=== PATIENT | female | born 1995 | race Caucasian/White ===

== ENCOUNTER 2016-10-25 15:40 | Outpatient (CLI) | payer OTHER ==
[~2016-10-25] VITALS: Ht 167.6 cm; Wt 61.4 kg
[~2016-10-25 15:40] MED LIST: ABILIFY5 MG PO; ANSAID100 MG PO; DESYREL100 MG PO; ZOLOFT100 MG PO
[2016-10-25 15:54] VITALS: BP 122/62
[2016-10-25] MEDS ORDERED: EXPECTA PRENAT1 EACH PO (16:09)
[2016-10-25 16:44] LABS: BASOPHIL COUNT 0.1 K/uL (0-0.1); EOSINOPHIL (%) 3.9 % (0-5); EOSINOPHIL COUNT 0.4 K/uL (0-0.3); HEMATOCRIT 37.5 % (36.0-46.0); IMMATURE GRANULOCYTE (%) 0.6 % (0.0-0.7); IMMATURE GRANULOCYTE COUNT 0.1 K/uL; INSTRUMENT ABS NEUTROPHIL CT 6.5 K/uL; LYMPHOCYTE COUNT 1.9 K/uL (1.0-2.8); MCH 32.8 PG (29.0-34.0); MCV 91.2 FL (83-99); MEAN PLAT.VOLUME 10.8 uM^3 (9.5-12.4); MONOCYTE (%) 6.6 % (3-12); MONOCYTE COUNT 0.6 K/uL (0-0.8); NEUTROPHIL (%) 68.1 % (45-76); NEUTROPHIL COUNT 6.5 K/uL (1.8-6.4); PLATELET COUNT 181 K/uL (156-360); RBC DIS.WIDTH-CV 13.2 % (11.8-14.6); RBC DIS.WIDTH-SD 43.7 % (39-53); RED BLOOD COUNT 4.11 M/uL (3.80-5.20); WHITE BLOOD COUNT 9.5 K/uL (4.1-10.2)
[2016-10-25 18:03] VITALS: BP 109/61
[2016-10-25 18:35] LABS: ADD MIUA? NO; BILIRUBIN NEGATIVE; BLOOD NEGATIVE; COLOR YELLOW ((YELLOW)); GLUCOSE (STRIP) NEGATIVE; KETONES 20; LEUKOCYTES NEGATIVE; NITRITE NEGATIVE; PROTEIN (STRIP) NEGATIVE; SPECIFIC GRAVITY 1.019 (1.000-1.030); UROBILINOGEN 0.2 MG/DL (0.2-1.0)
[2016-10-25 19:12] VITALS: BP 101/59
[2016-10-25 19:37] LABS: THC CANNABINOIDS NEGATIVE (50 ng/mL)
[2016-10-25 19:38] LABS: AMPHETAMINE NEGATIVE (500 ng/mL); BARBITURATES NEGATIVE (200 ng/mL); BENZODIAZEPINES NEGATIVE (150 ng/mL); COCAINE NEGATIVE (150 ng/mL); INTERNAL CONTROLS VALID? YES; METHADONE NEGATIVE (200 ng/mL); METHAMPHETAMINE NEGATIVE (500 ng/mL); OPIATES (MORPHINE) NEGATIVE (100 ng/mL); OXYCODONE NEGATIVE (100 ng/mL); PHENCYCLIDINE NEGATIVE (25 ng/mL); PROPOXYPHENE NEGATIVE (300 ng/mL); TRICYCLIC ANTIDEPRESSANTS NEGATIVE (300 ng/mL)
[2016-10-25 20:14] LABS: CANDIDA DNA PROBE NEGATIVE; GARDNERELLA DNA PROBE NEGATIVE; INTERNAL CONTROL VALID? YES
[2016-10-28 13:22] LABS: CHLAMYDIA TRACHOMATIS NEGATIVE; NEISSERIA GONORRHOEAE NEGATIVE
== END 2016-10-25 20:50 | disposition home or self-care (01) ==
LOC: LDRP-OP 15:40 → 2WEST 15:44
PROVIDERS: Advanced Practice Midwife; Obstetrics & Gynecology
DX: O60.02 Preterm labor without delivery, second trimester (principal); Z3A.20 20 weeks gestation of pregnancy; Z88.0 Allergy status to penicillin
CPT/HCPCS: 59025; 81003; 85025; 87086; 87480; 87491; 87510; 87591; 87660; G0378

== ENCOUNTER → 2016-12-05 | Outpatient (CLI) | payer OTHER ==
[~2016-12-05] VITALS: Ht 167.6 cm; Wt 65.0 kg
[~2016-12-05] MED LIST changes: +EXPECTA PRENAT1 EACH PO
[2016-12-05 17:05] VITALS: BP 110/62
== END | disposition home or self-care (01) ==
LOC: IVINF 16:58
DX: Z31.82 Encounter for Rh incompatibility status (principal); O46.92 Antepartum hemorrhage, unspecified, second trimester
CPT/HCPCS: 96372

== ENCOUNTER 2017-01-01 20:23 | Outpatient (CLI) | payer OTHER ==
[~2017-01-01] VITALS: Ht 167.6 cm; Wt 68.0 kg
[2017-01-01 20:42] VITALS: BP 122/69
[2017-01-01 23:37] LABS: ADD MIUA? NO; BILIRUBIN NEGATIVE; BLOOD NEGATIVE; COLOR STRAW ((YELLOW)); GLUCOSE (STRIP) NEGATIVE; KETONES NEGATIVE; LEUKOCYTES NEGATIVE; NITRITE NEGATIVE; PROTEIN (STRIP) NEGATIVE; UCUL ADDED? NO; UROBILINOGEN 0.2 MG/DL (0.2-1.0)
[2017-01-01 23:45] VITALS: BP 115/66
[2017-01-02 02:42] VITALS: BP 110/60
[2017-01-02 04:20] LABS: CANDIDA DNA PROBE NEGATIVE; GARDNERELLA DNA PROBE NEGATIVE; INTERNAL CONTROL VALID? YES
[2017-01-02 07:55] VITALS: BP 102/50
[2017-01-02] MEDS ORDERED: TERAZOL 745 GM VG (19:14)
[2017-01-03 13:36] LABS: CHLAMYDIA TRACHOMATIS NEGATIVE; NEISSERIA GONORRHOEAE NEGATIVE
== END 2017-01-02 08:15 | disposition home or self-care (01) ==
LOC: LDRP-OP → 2WEST 20:24 → LDRP-OP 04-12 21:12
PROVIDERS: Advanced Practice Midwife; Obstetrics & Gynecology
DX: O60.03 Preterm labor without delivery, third trimester (principal); Z3A.30 30 weeks gestation of pregnancy
CPT/HCPCS: 59025; 81003; 87081; 87480; 87491; 87510; 87591; 87660; G0378; J7120

== ENCOUNTER 2017-01-02 18:07 | Outpatient (CLI) | payer OTHER ==
[2017-01-02 18:23] VITALS: BP 113/62
[2017-01-02] MEDS ORDERED: TERAZOL 745 GM VG (19:14)
== END 2017-01-02 19:05 | disposition home or self-care (01) ==
LOC: LDRP-OP 18:07 → 2WEST 18:08
DX: O60.03 Preterm labor without delivery, third trimester (principal); Z3A.30 30 weeks gestation of pregnancy
CPT/HCPCS: 59025; G0378

== ENCOUNTER 2017-01-16 17:20 | Outpatient (CLI) | payer OTHER ==
[~2017-01-16 17:20] MED LIST changes: +TERAZOL 745 GM VG
[2017-01-16 17:33] VITALS: BP 119/69
[2017-01-16 18:38] LABS: AMPHETAMINE NEGATIVE (500 ng/mL); BARBITURATES NEGATIVE (200 ng/mL); BENZODIAZEPINES NEGATIVE (150 ng/mL); COCAINE NEGATIVE (150 ng/mL); INTERNAL CONTROLS VALID? YES; METHADONE NEGATIVE (200 ng/mL); METHAMPHETAMINE NEGATIVE (500 ng/mL); OPIATES (MORPHINE) NEGATIVE (100 ng/mL); OXYCODONE NEGATIVE (100 ng/mL); PHENCYCLIDINE NEGATIVE (25 ng/mL); PROPOXYPHENE NEGATIVE (300 ng/mL); THC CANNABINOIDS NEGATIVE (50 ng/mL); TRICYCLIC ANTIDEPRESSANTS NEGATIVE (300 ng/mL)
[2017-01-16 19:13] VITALS: BP 118/72
[2017-01-16 20:02] LABS: ADD MIUA? YES; BILIRUBIN NEGATIVE; BLOOD SMALL; COLOR YELLOW ((YELLOW)); GLUCOSE (STRIP) NEGATIVE; KETONES NEGATIVE; LEUKOCYTES MODERATE; NITRITE NEGATIVE; PROTEIN (STRIP) NEGATIVE; SPECIFIC GRAVITY 1.009 (1.000-1.030); UROBILINOGEN 0.2 MG/DL (0.2-1.0)
[2017-01-16 20:04] LABS: BACTERIA 2+ /HPF; EPITHELIAL CELLS 1+ /HPF; RED BLOOD CELLS 0-5 /HPF (0-5); UCUL ADDED? YES; WHITE BLOOD CELLS 0-5 /HPF (0-5)
[2017-01-16 20:05] LABS: MUCUS TRACE /LPF
[2017-01-16 23:01] LABS: CANDIDA DNA PROBE NEGATIVE; GARDNERELLA DNA PROBE NEGATIVE; INTERNAL CONTROL VALID? YES
== END 2017-01-16 20:25 | disposition home or self-care (01) ==
LOC: LDRP-OP 17:20 → 2WEST 17:21 → LDRP-OP 04-12 20:44
PROVIDERS: Advanced Practice Midwife; Obstetrics & Gynecology Obstetrics
DX: O47.03 False labor before 37 completed weeks of gestation, third trimester (principal); Z3A.32 32 weeks gestation of pregnancy
CPT/HCPCS: 59025; 81003; 82731; 87086; 87480; 87510; 87660; G0378; J7120

== ENCOUNTER 2017-02-28 16:56 | Inpatient (IN) | payer OTHER ==
[~2017-02-28] VITALS: Ht 167.6 cm; Wt 72.7 kg
[2017-02-28] VITALS (12 sets, daily range): BP systolic 99–129; BP diastolic 54–76
[2017-02-28 19:22] LABS: EOSINOPHIL (%) 1.9 % (0-5); EOSINOPHIL COUNT 0.2 K/uL (0-0.3); HEMATOCRIT 38.3 % (36.0-46.0); IMMATURE GRANULOCYTE (%) 1.1 % (0.0-0.7); IMMATURE GRANULOCYTE COUNT 0.1 K/uL; INSTRUMENT ABS NEUTROPHIL CT 6.6 K/uL; LYMPHOCYTE COUNT 1.9 K/uL (1.0-2.8); MCH 31.6 PG (29.0-34.0); MCHC 34.5 G/DL (30.0-36.0); MCV 91.6 FL (83-99); MEAN PLAT.VOLUME 12.6 uM^3 (9.5-12.4); MONOCYTE (%) 7.9 % (3-12); MONOCYTE COUNT 0.8 K/uL (0-0.8); NEUTROPHIL (%) 69.3 % (45-76); NEUTROPHIL COUNT 6.6 K/uL (1.8-6.4); PLATELET COUNT 144 K/uL (156-360); RBC DIS.WIDTH-CV 14.6 % (11.8-14.6); RBC DIS.WIDTH-SD 49.3 % (39-53); RED BLOOD COUNT 4.18 M/uL (3.80-5.20); WHITE BLOOD COUNT 9.5 K/uL (4.1-10.2)
[2017-03-01] VITALS (10 sets, daily range): BP systolic 101–158; BP diastolic 59–82
[2017-03-02 07:04] LABS: EOSINOPHIL (%) 2.9 % (0-5); EOSINOPHIL COUNT 0.3 K/uL (0-0.3); HEMATOCRIT 32.1 % (36.0-46.0); IMMATURE GRANULOCYTE (%) 1.5 % (0.0-0.7); IMMATURE GRANULOCYTE COUNT 0.1 K/uL; INSTRUMENT ABS NEUTROPHIL CT 4.9 K/uL; LYMPHOCYTE COUNT 2.5 K/uL (1.0-2.8); MCH 32.2 PG (29.0-34.0); MCHC 34.3 G/DL (30.0-36.0); MCV 93.9 FL (83-99); MEAN PLAT.VOLUME 12.4 uM^3 (9.5-12.4); MONOCYTE (%) 8.2 % (3-12); MONOCYTE COUNT 0.7 K/uL (0-0.8); NEUTROPHIL (%) 57.2 % (45-76); NEUTROPHIL COUNT 4.9 K/uL (1.8-6.4); PLATELET COUNT 131 K/uL (156-360); RBC DIS.WIDTH-CV 14.8 % (11.8-14.6); RBC DIS.WIDTH-SD 50.1 % (39-53); RED BLOOD COUNT 3.42 M/uL (3.80-5.20); WHITE BLOOD COUNT 8.5 K/uL (4.1-10.2)
[2017-03-02 07:11] VITALS: BP 123/75
[2017-03-02 15:00] VITALS: BP 127/72
[2017-03-03 00:08] VITALS: BP 120/75
[2017-03-03 07:24] VITALS: BP 107/59
[2017-03-03] MEDS ORDERED: IBUPROFEN800 MG PO (09:48)
[2017-03-03] MEDS ORDERED: PUMP IN STYLE1 EACH MC (09:48)
[2017-03-03 15:00] VITALS: BP 122/74
== END 2017-03-03 17:29 | disposition home or self-care (01) | DRG 775 ==
LOC: LDRP-OP 16:56 → 2WEST 16:59 → LDRP-OP 04-12 20:41
PROVIDERS: Advanced Practice Midwife
DX: O69.81X0 Labor and delivery complicated by cord around neck, without compression, not applicable or unspecified (principal); Z3A.38 38 weeks gestation of pregnancy; Z37.0 Single live birth
CPT/HCPCS: 82247; 82248; 85025; C1755; G0378; J7120